=== PATIENT | female | born 1980 | race Two or more races ===

== ENCOUNTER → 2017-12-01 | Day surgery (SDC) | payer OTHER ==
[~2017-12-01] MED LIST: LIDOCAINE 2% JELLY 5 ML TUBE ONE
== END ==
LOC: END 07:36
PROVIDERS: ATTEND Internal Medicine Gastroenterology
PROC: 4A0B7BZ Measurement of Gastrointestinal Pressure, Via Natural or Artificial Opening (ICD-10-PCS; principal; 2017-12-01)
DX: K21.9 Gastro-esophageal reflux disease without esophagitis (principal)
CPT/HCPCS: 91010

== ENCOUNTER 2019-05-17 05:29 | Day surgery (SDC) | payer OTHER ==
[2019-05-10 10:17] LABS: ABSOLUTE EOSINOPHILS # (AUTO) 0.1 10^3/uL (0.0-0.6); ABSOLUTE LYMPHOCYTES (AUTO) 2.7 10^3/uL (0.5-4.7); ABSOLUTE MONOCYTES (AUTO) 0.5 10^3/uL (0.1-1.4); ABSOLUTE NEUT (AUTO) 4.9 10^3/uL (1.7-8.2); BASOPHILS % (AUTO) 0.3 % (0-2); EOSINOPHILS % (AUTO) 1.2 % (0-6); HEMATOCRIT 39.4 % (36.0-47.0); HEMOGLOBIN 13.2 g/dL (12.0-15.5); LYMPHOCYTES % (AUTO) 32.9 % (13-45); MEAN CORPUSCULAR HEMOGLOBIN 30.2 pg (27.0-33.4); MEAN CORPUSCULAR HGB CONC 33.5 g/dL (32.0-36.0); MEAN CORPUSCULAR VOLUME 90 fl (80-97); PLATELET COUNT 384 10^3/uL (150-450); RED BLOOD COUNT 4.37 10^6/uL (3.72-5.28); RED CELL DISTRIBUTION WIDTH 13.7 % (11.5-14.0); SEGMENTED NEUTROPHILS % (AUTO) 59.6 % (42-78); TOTAL CELLS COUNTED % (AUTO) 100 %; WHITE BLOOD COUNT 8.2 10^3/uL (4.0-10.5)
[~2019-05-17 05:29] MED LIST changes: +CEFAZOLIN 2 GM/D5W RTU 2 GM/50 ML RTUPB IV PRN; +LACTATED RINGERS 1000 ML IV PRN; +LIDOCAINE 0.5% INJ-PF (5 MG/ML) 50 ML SDV SUBCUT PRN; -LIDOCAINE 2% JELLY 5 ML TUBE ONE
[2019-05-17] MEDS ORDERED: CEFAZOLIN 2 GM/D5W RTU 2 GM/50 ML RTUPB IV ONE (05:37)
[2019-05-17] MEDS ORDERED: MIDAZOLAM 2 MG/2 ML INJ ONE (07:10)
[2019-05-17] MEDS ORDERED: FENTANYL CITRATE INJ/PF 100 MCG/2 ML AMPUL ONE (07:10)
[2019-05-17] MEDS ORDERED: KETAMINE HCL INJ 500 MG/10 ML VIAL ONE (07:10)
[2019-05-17] MEDS ORDERED: PROPOFOL INJ 200 MG/20 ML VIAL IV ONE (07:11)
[2019-05-17] MEDS ORDERED: FENTANYL CITRATE INJ/PF 250 MCG/5 ML AMPULE ONE (07:25)
[2019-05-17] MEDS ORDERED: BACITRACIN INJ 50,000 UNIT VIAL ONE (07:26)
[2019-05-17] MEDS ORDERED: BUPIVACAINE HCL 0.5 % INJ/PF 30 ML SDV ONE (07:26)
[2019-05-17] MEDS ORDERED: BUPIVACAINE INJ/PF LIPOSOME/PF 266 MG/20 ML SDV ONE (07:26)
[2019-05-17] MEDS ORDERED: FENTANYL CITRATE INJ/PF 100 MCG/2 ML AMPUL IV PRN ×3 (08:15)
[2019-05-17] MEDS ORDERED: PROMETHAZINE HCL INJ 25 MG/1 ML VIAL IV PRN ×2 (08:15)
[2019-05-17] MEDS ORDERED: DIPHENHYDRAMINE HCL 50 MG/ML VIAL IV PRN (08:15)
[2019-05-17] MEDS ORDERED: HYDROMORPHONE HCL INJ/PF 2 MG/ML AMPULE IV PRN ×2 (08:16→08:18)
[2019-05-17] MEDS ORDERED: NALOXONE HCL INJ/PF 0.4 MG/1 ML SDV ONE (10:03)
--- NOTE | 2019-05-17 10:24 | OPERATIVE REPORT E ---
Operative Report NAME: SEVEN MENDES : 1980 AGE: 38Y DATE OF SURGERY: 05/17/2019 ROOM: PREOPERATIVE DIAGNOSIS: 1. L5-S1 STENOSIS. 2. L5-S1 RIGHT-SIDED HERNIATED NUCLEUS PULPOSUS. 3. DEGENERATIVE DISK DISEASE. 4. BACK PAIN. 5. RADICULITIS. POSTOPERATIVE DIAGNOSIS: 1. L5-S1 STENOSIS. 2. L5-S1 RIGHT-SIDED HERNIATED NUCLEUS PULPOSUS. 3. DEGENERATIVE DISK DISEASE. 4. BACK PAIN. 5. RADICULITIS. OPERATION: L5 partial laminectomy, L5-S1 right-sided microdiskectomy. SURGEON: HOPE RAYMUNDO M.D. KILN FIRER: YORDY Saul ANESTHESIA: General endotracheal intubation. ESTIMATED BLOOD LOSS: 100 mL. INDICATIONS: The patient is a 38-year-old female with right lower extremity numbness and weakness and after discussion with the patient of the risks, indications, and alternatives, including the risk of infection, bleeding, damage to nerves or blood vessels, the risk of dural tear and spinal headache, the risk of recurrent disk herniation, the risk of continued back pain, the patient wished to pursue the surgical intervention. I discussed with patient the alternatives including injections and physical therapy but the pain is too severe and the weakness led us to recommend the surgical intervention but we did offer her al of the options surgical and nonsurgical. DESCRIPTION OF PROCEDURE: The patient was brought into the room, placed under anesthesia, received 2 g of Ancef within 1 hour of cut time, had SCDs and a warm blanket and placed in a prone position on the radiolucent OSI table with the Koko frame attachment. The Koko frame was turned up to open up the interspace posteriorly. Under lateral C-arm fluoroscopy the skin was marked at L5-S1 midline and after completion of prepping and draping, a midline incision was carried down through the skin, measuring approximately 2 inches. Dissection was carried down onto the lumbodorsal fascia. The lumbodorsal fascia was incised on both sides of the spinous processes down to the lamina of L5 and S1 bilaterally and a Hayes was used to aubree the posterior interspace. After verification of the posterior interspace, the interspace was marked and the Jansen retractor was placed to retract mediolaterally. After that, the microscope was brought in under the microscope and after the spinous processes resected at L5 and under the microscope the shade and the Kerrison's are utilized for a partial laminectomy. Ligamentum flavum was resected, noting the ligamentum flavum was thickened. The incision was carried down across the midline but then all of the way down to the right lateral recess where the dura is identified and nerve root retracted medially through the assistance of Alex Prince working under the microscope. The nerve root retractor is used to retract the dura and the nerve root and there was noted to be a sizeable extruded piece of disk. This was removed as well as other pieces of disk which were extending across the midline under the microscope. After decompression, the dura was found to rest more ventrally. After that and after removing loose pieces, the disk space was irrigated. Small little degenerative pieces were resected as well and a Valsalva maneuver was performed by anesthesia, noting no cerebrospinal fluid leak. There is no epidural bleeders. The wound was then irrigated with a liter of Bacitracin irrigation. Then, the fascia was reapproximated with 0 Vicryl in interrupted fashion, the deep and superficial soft tissues are infiltrated with 1.3% Exparel 20 mL of 0.5% Bupivacaine plain. After that, the subcutaneous was reapproximated with 2-0 Vicryl and the skin with a running subcuticular and 3-0 Monocryl closure. Wounds are dressed in Benzoin, Steri-Strips, 4 x 4, and tape. The patient tolerated the procedure well. Estimated blood loss 100 mL. Patient's condition is stable. The patient was brought to the supine position, and extubated and brought to recovery room. DICTATING PHYSICIAN: HOPE RAYMUNDO M.D. [id number] PHY#: [id number] ID: [id number] JOB#: [id number] ACCT: [id number] cc:HOPE RAYMUNDO M.D. >
[2019-05-17] MEDS ORDERED: ACETAMINOPHEN 325 MG TABLET PO PRN (10:53)
[2019-05-17] MEDS ORDERED: HYDROCODONE/ACETAMINOPHEN 5-325 MG TABLET PO PRN (10:55)
[2019-05-17] MEDS ORDERED: OXYCODONE-ACETAMINOPHEN 5-325 MG TABLET PO PRN (10:57)
[2019-05-17] MEDS ORDERED: ONDANSETRON HCL INJ/PF 4 MG/2 ML SDV IV PRN (11:00)
[2019-05-17] MEDS ORDERED: METHOCARBAMOL INJ/PF 1000 MG/10 ML SDV IV ONE (11:00)
[2019-05-17] MEDS ORDERED: PROMETHAZINE HCL 25 MG TABLET PO PRN (11:01)
[2019-05-17] MEDS ORDERED: LIDOCAINE 2% INJ-PF (20 MG/ML) 2 ML AMPUL ONE ×2 (12:03→12:16)
[2019-05-17] MEDS ORDERED: PHENYLEPHRINE HCL INJ/PF 10 MG/1 ML SDV ONE (12:16)
[2019-05-17] MEDS ORDERED: ONDANSETRON HCL INJ/PF 4 MG/2 ML SDV ONE (12:16)
[2019-05-17] MEDS ORDERED: KETOROLAC TROMETHAMINE 60 MG/2 ML SDV ONE (12:16)
[2019-05-17] MEDS ORDERED: GLYCOPYRROLATE 1 MG/5 ML VIAL ONE (12:16)
[2019-05-17] MEDS ORDERED: SUCCINYLCHOLINE CHLORIDE INJ 200 MG/10 ML VIAL ONE (12:16)
--- NOTE | 2019-05-17 12:17 | RADIOLOGY REPORT (SQ) ---
EXAM DESCRIPTION: SPINE SINGLE VIEW; NO CHG FLUORO COMPLETED DATE/TIME: 05/17/2019 11:28 am REASON FOR STUDY: LUMBAR LAMINECTOMY ASST WITH FLUORO IN OR M51.16 INTERVERTEBRAL DISC DISORDERS W RADICULOPATHY, LUMBAR M51.36 OTHER INTERVERTEBRAL DISC DEGENERATION, LUMBAR REGION M54.5 LOW BACK P AIN COMPARISON: None. FLUOROSCOPY TIME: Less than 0.1 minute. 2 images saved to PACS. TECHNIQUE: Intra-operative images acquired during surgical procedure to evaluate progress. NUMBER OF IMAGES: 2 images. LIMITATIONS: None. FINDINGS: Localization instrument posterior to the lumbosacral junction. IMPRESSION: IMAGE(S) OBTAINED DURING PROCEDURE. COMMENT: Quality ID [id number]: Final reports for procedures using fluoroscopy that document radiation exp osure indices, or exposure time and number of fluorographic images (if radiation exposure indices are not available) Please consult full operative report of the attending physician for description of the procedure. TECHNICAL DOCUMENTATION: JOB ID: [id number] [employer]- All Rights Reserved Reading location - IP/workstation name: [email or web address]
--- NOTE | 2019-05-17 12:17 | RADIOLOGY REPORT (SQ) ---
EXAM DESCRIPTION: SPINE SINGLE VIEW; NO CHG FLUORO COMPLETED DATE/TIME: 05/17/2019 11:28 am REASON FOR STUDY: LUMBAR LAMINECTOMY ASST WITH FLUORO IN OR M51.16 INTERVERTEBRAL DISC DISORDERS W RADICULOPATHY, LUMBAR M51.36 OTHER INTERVERTEBRAL DISC DEGENERATION, LUMBAR REGION M54.5 LOW BACK P AIN COMPARISON: None. FLUOROSCOPY TIME: Less than 0.1 minute. 2 images saved to PACS. TECHNIQUE: Intra-operative images acquired during surgical procedure to evaluate progress. NUMBER OF IMAGES: 2 images. LIMITATIONS: None. FINDINGS: Localization instrument posterior to the lumbosacral junction. IMPRESSION: IMAGE(S) OBTAINED DURING PROCEDURE. COMMENT: Quality ID [id number]: Final reports for procedures using fluoroscopy that document radiation exp osure indices, or exposure time and number of fluorographic images (if radiation exposure indices are not available) Please consult full operative report of the attending physician for description of the procedure. TECHNICAL DOCUMENTATION: JOB ID: [id number] [employer]- All Rights Reserved Reading location - IP/workstation name: [email or web address]
[2019-05-17 12:22] VITALS: BP 116/73
== END 2019-05-17 12:20 | disposition home or self-care (01) ==
LOC: OROUT 05:29
PROVIDERS: ATTEND Orthopaedic Surgery
DX: M51.16 Intervertebral disc disorders with radiculopathy, lumbar region (principal); M51.36 Other intervertebral disc degeneration, lumbar region; M54.5 Low back pain; M48.061 Spinal stenosis, lumbar region without neurogenic claudication; Z79.899 Other long term (current) drug therapy; M51.26 Other intervertebral disc displacement, lumbar region
CPT/HCPCS: 36415; 85025; 81025; 87070; 72020; 00630; 63047; J2250; J3490 ×5; J1885; J3010 ×2; J2800; J2310; J2370; J0330; J2405; J2704; J0690; C9290; 630

== ENCOUNTER → 2020-07-10 | Outpatient (CLI) | payer OTHER ==
--- NOTE | 2020-07-10 12:26 | RADIOLOGY REPORT (SQ) ---
EXAM DESCRIPTION: NM GASTRIC EMPTYING STUDY IMAGES COMPLETED DATE/TIME: 07/10/2020 11:27 am REASON FOR STUDY: EPIGASTRIC PAIN (R10.13) R10.13 EPIGASTRIC PAIN COMPARISON: None. RADIONUCLIDE AND DOSE: 2 millicuries Tc-99m Sulfur Colloid. A wide variety of solid foods have been used. The route of agent administration: Oral. TECHNIQUE: 1 minute serial static imaging performed at time of meal, 1 hour, 2 hours, 3 hours, and 4 hours as needed. Once stomach reaches 90% emptying, the test is complete. Image intensity values pl otted with respect to time with linear regression algorithm. LIMITATIONS: None. FINDINGS: Patient was observed for 3 hours. Immediate post meal serves as baseline. Gastric emptying at 30 minutes was 57.5%. Gastric emptying at 60 minutes was 78.6% Gastric emptying at 90 minutes was 88.9%. Gastric emptying at 120 minutes was 94.2%. Gastric emptying at 180 minutes was 99.6%. Normal values: 60 minutes: 30-90% retained. If less than 30%, abnormally rapid emptying. If greater than 90%, delaye d gastric emptying. 120 minutes: <60% retained. If greater than 60%, delayed gastric emptying. 240 minutes: <10% retained. If greater than 10%, delayed gastric emptying. IMPRESSION: NORMAL GASTRIC EMPTYING. TECHNICAL DOCUMENTATION: JOB ID: [id number] [email or web address]- All Rights Reserved rev-04/08 Reading location - IP/workstation name: [email or web address]
== END ==
LOC: RAD 07:46
PROVIDERS: ATTEND Internal Medicine Gastroenterology
DX: R10.13 Epigastric pain (principal)
CPT/HCPCS: 78264; A9541